=== PATIENT | male | born 1970 | race Caucasian/White ===

== ENCOUNTER 2017-01-24 12:26 | Emergency (ER) | payer SELFPAY ==
[2017-01-24] MEDS ORDERED: IPRATROPIUM/ALBUTEROL 3 ML DEYVIAL ONE (12:43)
[2017-01-24] MEDS ORDERED: IPRATROPIUM/ALBUTEROL 3 ML DEYVIAL IH ONE (12:45)
[2017-01-24 12:51] VITALS: BP 158/88; PULSE 87; RESP 20; TEMP 98.3; O2SAT 94
--- NOTE | 2017-01-24 13:04 | UCPHY ---
H & P Patient Type: Established Chief Complaint Nursing Narrative: Since Wednesday has had URI s/s and has made asthma worse . Running out of his flovent and albuterol. Sinus congestion Time Seen by Provider: 01/24/17 12:44 HPI/ROS: CHIEF COMPLAINT: Dyspnea HISTORY OF PRESENT ILLNESS: The patient has a history of asthma. He presents to the urgent care with complaints of dyspnea and a dry nonproductive cough over the past 4 days. The patient has a history of intermittent asthma. He reportedly ran out of his Flovent and albuterol several weeks ago. The patient denies history of fever. He denies history of abdominal pain, asymmetric calf pain or swelling, pleuritic chest pain, prior history of PE or DVT or recent fall or trauma. The patient reports his dyspnea is moderate in nature. The patient denies additional acute complaints. REVIEW OF SYSTEMS: A comprehensive 10 point review of systems is otherwise negative aside from elements mentioned in the history of present illness. Source: Patient Exam Limitations: No limitations - Medical/Surgical History Hx Asthma: Yes Hx Chronic Respiratory Disease: No Hx Diabetes: No Hx Cardiac Disease: No Hx Renal Disease: No Hx Cirrhosis: No Hx Alcoholism: No Hx HIV/AIDS: No Hx Splenectomy or Spleen Trauma: No Other PMH: PCP None. Asthma. Flu none. Tetanus ? - Family History Significant Family History: No pertinent family hx - Social History Smoking Status: Never smoked - Physical Exam Exam: General Appearance: Alert, no distress Eyes: Pupils equal and round no pallor or injection ENT, Mouth: Mucous membranes moist Respiratory: Mild scant expiratory wheezing, no tachypnea, no respiratory distress Cardiovascular: Regular rate and rhythm Gastrointestinal: Abdomen is soft and nontender, no masses, bowel sounds normal Neurological: A&O, normal motor function, normal sensory exam, normal cranial nerves Skin: Warm and dry, no rashes Musculoskeletal: Neck is supple nontender Extremities: symmetrical, full range of motion Constitutional: Initial Vital Signs Temperature (C) 36.8 C 01/24/17 12:47 Heart Rate 87 01/24/17 12:47 Respiratory Rate 20 01/24/17 12:47 Blood Pressure 158/88 H 01/24/17 12:47 O2 Sat (%) 94 01/24/17 12:47 O2 Delivery Mode Room Air Allergies/Adverse Reactions: No Known Allergies Allergy (Verified 01/24/17 12:51) Home Medications: Medication Instructions Recorded Albuterol Hfa Anes Only [Proair 2 puffs IH Q4 PRN #1 mdi 08/18/14 Hfa Icu (*)] Albuterol Hfa Anes Only [Proair 08/18/14 Hfa Icu (RX)] Fluticasone Hfa 220 Mcg [Flovent 2 puffs IH DAILY #1 mdi 08/18/14 220 MCG Hfa MDI (*)] Albuterol [Ventolin Hfa Inhaler] 2 puffs IH QID PRN #1 mdi 01/24/17 Fluticasone Hfa 220 Mcg [Flovent 1 puffs IH BID #1 mdi 01/24/17 220 MCG Hfa MDI (*)] Guaifenesin/Codeine Phosphate 10 ml PO HS PRN #100 ml 01/24/17 [Guaifenesin-Codeine Syrup] predniSONE 2 tab PO DAILY #10 01/24/17 Medical Decision Making ED Course/Re-evaluation: The patient presents with complaints of acute dyspnea secondary to a mild acute asthma exacerbation. The patient did receive a single albuterol nebulize treatment in the emergency department marked improvement of his symptoms. The patient was re-evaluated by myself and has had complete resolution of his symptoms after receiving a single albuterol treatment in the urgent care. The patient will be discharged home with a refill of his albuterol, Flovent, oral prednisone x4 days and a prescription for cough syrup. The patient understands to return to the urgent care for any recurrent symptoms of dyspnea, fever, markedly worsening symptoms or other concerns. Differential Diagnosis: Differential diagnosis considered includes asthma, bronchitis, pneumonia, influenza - Data Points Medications Given: Discontinued Medications Albuterol/Ipratropium (Duoneb) 3 ml IH EDNOW ONE Stop: 01/24/17 12:46 Last Admin: 01/24/17 12:46 Dose: 3 ml Departure - Departure Disposition: Home, Routine, Self-Care Clinical Impression: Asthma exacerbation Condition: Good Instructions: Bronchospasm (ED) Additional Instructions: 1. Take prednisone as directed for next 5 days. 2. Please use albuterol inhaler and Flovent inhaler as needed for management of your shortness of breath. 3. Please return to urgent care or emergency department for any worsening respiratory symptoms or other concerns. 4. Please schedule a follow-up appointment with your primary care provider for a recheck in the next 1-2 weeks. Referrals: FRED MARTIN [Non Staff Provider (MD)] - As per Instructions Prescriptions: Albuterol [Ventolin Hfa Inhaler] 2 puffs IH QID PRN #1 mdi PRN Reason: for shortness of breath Fluticasone Hfa 220 Mcg [Flovent 220 MCG Hfa MDI (*)] 1 puffs IH BID #1 mdi Guaifenesin/Codeine Phosphate [Guaifenesin-Codeine Syrup] 10 ml PO HS PRN #100 ml PRN Reason: for cough predniSONE 2 tab PO DAILY #10 - PQRS PQRS Measurement: Not applicable
== END 2017-01-24 13:15 | disposition home or self-care (01) ==
LOC: CED 12:26
DX: J45.901 Unspecified asthma with (acute) exacerbation (principal)
CPT/HCPCS: 99214-PO; G0463-PO